=== PATIENT | female | born 1995 | race Two or more races ===

== ENCOUNTER 2022-11-06 10:15 | Outpatient (CLI) | payer OTHER | END 2022-11-06 10:45 | disposition home or self-care (01) | LOC: PPH VACUNA 10:15 | PROVIDERS: ATTEND Emergency Medicine Pediatric Emergency Medicine | DX: Z23 Encounter for immunization (principal) ==

== ENCOUNTER 2023-02-06 08:47 | Emergency (ER) | payer OTHER ==
[~2023-02-06] VITALS: Ht 147.3 cm; Wt 61.2 kg
[2023-02-06 09:58] LABS: HEMATOCRIT 36.7 % (36.0-45.00); HEMOGLOBIN 12.2 g/dL (12.0-15.00); MEAN CELL VOLUME 84.8 fL (80.00-100.00); MEAN CORPUSCULAR HEMOGLOBIN 28.2 pg (27.00-32.0); MEAN CORPUSCULAR HGB CONC 33.3 g/dl (32.0-36.0); PLATELET COUNT 287 K/uL (150-450); RED BLOOD COUNT 4.32 M/uL (4.00-6.00); RED CELL DISTRIBUTION WIDTH 13.5 % (11.5-14.5)
[2023-02-06 10:31] LABS: ALBUMIN 4.5 gm/dL (3.4-5.0); BILIRUBIN TOTAL 0.18 mg/dL (0.3-1.2); CALCIUM 9.3 mg/dL (8.5-10.1); CREATININE SERUM 0.81 mg/dL (0.55-1.02); GFR 84.82; GLOBULINA 3.7 G/DL (2.4-3.5); POTASSIUM 3.87 mEq/L (3.5-5.1); TOTAL PROTEIN 8.2 gm/dL (6.4-8.2)
[2023-02-06] MEDS ORDERED: TENORMIN50 M1 PO (11:17)
== END 2023-02-06 11:38 | disposition home or self-care (01) ==
LOC: ER
PROVIDERS: Emergency Medicine
DX: R07.89 Other chest pain (principal)

== ENCOUNTER 2023-09-17 10:41 | Outpatient (CLI) | payer OTHER ==
[~2023-09-17 10:41] MED LIST: ATENOLOL50 MG PO; TENORMIN50 M1 PO
== END 2023-09-17 10:49 | disposition home or self-care (01) ==
LOC: TOM 10:41
PROVIDERS: ATTEND Internal Medicine
DX: G44.52 New daily persistent headache (NDPH) (principal)

== ENCOUNTER → 2024-10-27 | Emergency (ER) | payer OTHER ==
[~2024-10-27] VITALS: Ht 147.3 cm; Wt 59.0 kg
== END | disposition left against medical advice (07) ==
LOC: ER 06:39
DX: Z53.21 Procedure and treatment not carried out due to patient leaving prior to being seen by health care provider (principal)